=== PATIENT | female | born 1980 | race Hispanic/Latino ===

== ENCOUNTER 2017-03-21 09:01 | Emergency (ER) | payer OTHER ==
[2017-03-21 09:08] VITALS: BP 138/79; PULSE 72; RESP 20; TEMP 98.4; O2SAT 99
--- NOTE | 2017-03-21 11:35 | ED PDOC ---
HPI: Allergic Reaction Time Seen by Provider: 03/21/17 09:44 Chief Complaint (Nursing): Allergic Reaction History Per: Patient History/Exam Limitations: no limitations Onset/Duration Of Symptoms: Gradual (today) Current Symptoms Are (Timing): Gone Now Possible Cause: Insect Bite Associated Symptoms: Skin Rash, Itching. denies: Swelling, Dyspnea, Trouble Swallowing, Dizziness, Redness, Chest Pain Home/EMS Treatment: Benadryl, Steroids Severity: Mild Additional History Per: Patient Past Medical History Reviewed: Historical Data, Nursing Documentation, Vital Signs Vital Signs: Last Vital Signs Temp 98.4 F 03/21/17 09:08 Pulse 72 03/21/17 09:08 Resp 20 03/21/17 09:08 BP 138/79 03/21/17 09:08 Pulse Ox 99 03/21/17 09:08 - Medical History PMH: No Chronic Diseases - Family History Family History: States: Unknown Family Hx - Living Arrangements Living Arrangements: With Family - Social History Current smoker - smoking cessation education provided: No Alcohol: None - Home Medications Home Medications: Ambulatory Orders Medication Instructions Recorded Loratadine [Claritin] 10 mg PO DAILY #5 tab 03/21/17 Methylprednisolone [Medrol Dose 4 mg PO DAILY #21 mg 03/21/17 Pack (21 tabs)] - Allergies Allergies/Adverse Reactions: Allergies Allergy/AdvReac Type Severity Reaction Status Date / Time No Known Allergies Allergy Verified 03/21/17 09:13 Review of Systems ROS Statement: Except As Marked, All Systems Reviewed And Found Negative Constitutional: Negative for: Fever, Chills Cardiovascular: Negative for: Chest Pain, Palpitations Respiratory: Negative for: Cough, Shortness of Breath Gastrointestinal: Negative for: Nausea, Vomiting, Abdominal Pain Neurological: Negative for: Weakness, Numbness Physical Exam - Reviewed Nursing Documentation Reviewed: Yes Vital Signs Reviewed: Yes - Physical Exam Appears: Positive for: Well Head Exam: Positive for: ATRAUMATIC, NORMAL INSPECTION, NORMOCEPHALIC Skin: Positive for: Normal Color, Warm, Dry Eye Exam: Positive for: Normal appearance, EOMI, PERRL ENT: Positive for: Pharynx Is (clear,mmm) Neck: Positive for: Normal, Painless ROM, Supple Cardiovascular/Chest: Positive for: Regular Rate, Rhythm, Chest Non Tender. Negative for: Edema, Gallop Respiratory: Positive for: Normal Breath Sounds. Negative for: Decreased Breath Sounds, Crackles Gastrointestinal/Abdominal: Positive for: Normal Exam, Bowel Sounds, Soft. Negative for: Tenderness Extremity: Positive for: Normal ROM, Other (right ue with a small insect bite with min surrounding brusing). Negative for: Tenderness, Pedal Edema Neurologic/Psych: Positive for: Alert, cleat thrower II-XII, Oriented. Negative for: Motor/Sensory Deficits - ECG O2 Sat by Pulse Oximetry: 99 Pulse Ox Interpretation: Normal - Progress ED Course And Treament: sx resolved after treatment at urgent care, pt does not remember what insect bit her. pt leaves ambulatory and in good spirits. Re-evaluation Time: 11:40 Condition: Improved Disposition - Clinical Impression Clinical Impression: Allergic reaction - Patient ED Disposition Is Patient to be Admitted: No Counseled Patient/Family Regarding: Studies Performed, Diagnosis, Need For Followup, Rx Given - Disposition Referrals: [facility] [Outside] (2 to 3 days) Disposition: Routine/Home Disposition Time: 11:32 Condition: GOOD Prescriptions: Loratadine [Claritin] 10 mg PO DAILY #5 tab Methylprednisolone [Medrol Dose Pack (21 tabs)] 4 mg PO DAILY #21 mg Instructions: Urticaria (ED), Black Spider Bite (ED) Forms: [employer] (Portuguese)
== END 2017-03-21 11:46 | disposition home or self-care (01) ==
LOC: H.ER 09:01
DX: T78.40XA Allergy, unspecified, initial encounter (principal)